=== PATIENT | female | born 1990 | race Caucasian/White ===

== ENCOUNTER → 2019-09-29 12:17 | Outpatient (BNVA) | payer MEDICAID, SELFPAY | PROVIDERS: Family Provider Family Medicine; PCP Family Medicine; Visit Provider Nurse Practitioner | DX: J02.9 Acute pharyngitis, unspecified (principal); J20.9 Acute bronchitis, unspecified; R05 Cough; R50.9 Fever, unspecified | CPT/HCPCS: 87804 ==

== ENCOUNTER → 2020-04-06 14:17 | Outpatient (BNVA) | payer MEDICAID, SELFPAY | PROVIDERS: Family Provider Family Medicine; PCP Family Medicine; Visit Provider Psychiatry & Neurology Psychiatry | DX: F32.9 Major depressive disorder, single episode, unspecified (principal); F41.1 Generalized anxiety disorder; F15.21 Other stimulant dependence, in remission | CPT/HCPCS: 99214 ==

== ENCOUNTER → 2020-04-27 11:09 | Outpatient (BNVA) | payer MEDICAID, SELFPAY | PROVIDERS: Family Provider Family Medicine; PCP Family Medicine; Visit Provider Obstetrics & Gynecology | DX: Z32.01 Encounter for pregnancy test, result positive (principal) | CPT/HCPCS: 81025 ==

== ENCOUNTER → 2020-04-28 14:04 | Outpatient (BNVA) | payer MEDICAID, SELFPAY | PROVIDERS: Family Provider Family Medicine; PCP Family Medicine; Visit Provider Nurse Practitioner | DX: J02.9 Acute pharyngitis, unspecified (principal) | CPT/HCPCS: 87071; 87880 ==

== ENCOUNTER → 2020-05-11 10:03 | Outpatient (BNVA) | payer MEDICAID, SELFPAY | PROVIDERS: Family Provider Family Medicine; PCP Family Medicine; Visit Provider Psychiatry & Neurology Psychiatry | DX: F41.1 Generalized anxiety disorder (principal); F32.9 Major depressive disorder, single episode, unspecified | CPT/HCPCS: 99213 ==

== ENCOUNTER → 2020-05-26 09:18 | Outpatient (BNVA) | payer MEDICAID, SELFPAY | PROVIDERS: Family Provider Family Medicine; PCP Family Medicine; Visit Provider Nurse Practitioner Women's Health | DX: Z34.90 Encounter for supervision of normal pregnancy, unspecified, unspecified trimester (principal) | CPT/HCPCS: 81000 ==

== ENCOUNTER → 2020-06-05 10:10 | Outpatient (BNVA) | payer MEDICAID, SELFPAY | PROVIDERS: Family Provider Family Medicine; PCP Family Medicine; Visit Provider Obstetrics & Gynecology | DX: O99.211 Obesity complicating pregnancy, first trimester (principal); Z3A.00 Weeks of gestation of pregnancy not specified | CPT/HCPCS: 80053; 80307; 81000; 82950; 85027; 86592; 86762; 86803; 86850; 86900; 87340; 87806 ==

== ENCOUNTER → 2020-06-15 13:43 | Outpatient (BNVA) | payer MEDICAID, SELFPAY | PROVIDERS: Family Provider Family Medicine; PCP Family Medicine; Visit Provider Obstetrics & Gynecology | DX: Z34.80 Encounter for supervision of other normal pregnancy, unspecified trimester (principal) | CPT/HCPCS: 81000; 87210; 87491; 87591; 88175 ==

== ENCOUNTER → 2020-06-26 15:25 | Outpatient (BNVA) | payer MEDICAID, SELFPAY | PROVIDERS: Family Provider Family Medicine; PCP Family Medicine; Visit Provider Obstetrics & Gynecology | DX: R39.15 Urgency of urination (principal); R35.1 Nocturia | CPT/HCPCS: 80053; 81000 ==

== ENCOUNTER → 2020-07-02 12:58 | Outpatient (BNVA) | payer MEDICAID, SELFPAY | PROVIDERS: Family Provider Family Medicine; PCP Family Medicine; Visit Provider Nurse Practitioner Women's Health | DX: Z34.90 Encounter for supervision of normal pregnancy, unspecified, unspecified trimester (principal) | CPT/HCPCS: 81000 ==

== ENCOUNTER → 2020-07-23 11:11 | Outpatient (BNVA) | payer MEDICAID, SELFPAY | PROVIDERS: Family Provider Family Medicine; PCP Family Medicine; Visit Provider Nurse Practitioner Women's Health | DX: Z34.90 Encounter for supervision of normal pregnancy, unspecified, unspecified trimester (principal) | CPT/HCPCS: 80307; 81000 ==

== ENCOUNTER → 2020-08-12 08:48 | Outpatient (BNVA) | payer MEDICAID, SELFPAY | PROVIDERS: Family Provider Family Medicine; PCP Family Medicine; Visit Provider Obstetrics & Gynecology | DX: O32.1XX0 Maternal care for breech presentation, not applicable or unspecified (principal); Z3A.20 20 weeks gestation of pregnancy | CPT/HCPCS: 76805 ==

== ENCOUNTER → 2020-08-14 10:09 | Outpatient (BNVA) | payer MEDICAID, SELFPAY | PROVIDERS: Family Provider Family Medicine; PCP Family Medicine; Visit Provider Obstetrics & Gynecology | DX: Z34.90 Encounter for supervision of normal pregnancy, unspecified, unspecified trimester (principal) | CPT/HCPCS: 81000 ==

== ENCOUNTER → 2020-09-10 13:15 | Outpatient (BNVA) | payer MEDICAID, SELFPAY | PROVIDERS: Family Provider Family Medicine; PCP Family Medicine; Visit Provider Obstetrics & Gynecology | DX: Z34.90 Encounter for supervision of normal pregnancy, unspecified, unspecified trimester (principal) | CPT/HCPCS: 81000 ==

== ENCOUNTER → 2020-10-05 10:40 | Outpatient (BNVA) | payer BC, MEDICAID, SELFPAY | PROVIDERS: Family Provider Family Medicine; PCP Family Medicine; Visit Provider Obstetrics & Gynecology | DX: Z34.80 Encounter for supervision of other normal pregnancy, unspecified trimester (principal) | CPT/HCPCS: 81000; 82950; 85027 ==

== ENCOUNTER → 2020-10-12 08:36 | Outpatient (BNVA) | payer BC, MEDICAID, SELFPAY | PROVIDERS: Family Provider Family Medicine; PCP Family Medicine; Visit Provider Obstetrics & Gynecology | DX: R73.09 Other abnormal glucose (principal) | CPT/HCPCS: 82951; 82952 ==

== ENCOUNTER → 2020-10-19 11:42 | Outpatient (BNVA) | payer BC, MEDICAID, SELFPAY | PROVIDERS: Family Provider Family Medicine; PCP Family Medicine; Visit Provider Obstetrics & Gynecology | DX: Z34.90 Encounter for supervision of normal pregnancy, unspecified, unspecified trimester (principal) | CPT/HCPCS: 80307; 81000 ==

== ENCOUNTER → 2020-11-02 10:33 | Outpatient (BNVA) | payer BC, MEDICAID, SELFPAY | PROVIDERS: Family Provider Family Medicine; PCP Family Medicine; Visit Provider Obstetrics & Gynecology | DX: Z34.90 Encounter for supervision of normal pregnancy, unspecified, unspecified trimester (principal) | CPT/HCPCS: 81000 ==

== ENCOUNTER → 2020-11-17 15:02 | Outpatient (BNVA) | payer BC, MEDICAID, SELFPAY | PROVIDERS: Family Provider Family Medicine; PCP Family Medicine; Visit Provider Nurse Practitioner Women's Health | DX: Z34.80 Encounter for supervision of other normal pregnancy, unspecified trimester | CPT/HCPCS: 80307; 81000 ==

== ENCOUNTER → 2020-11-30 10:09 | Outpatient (BNVA) | payer BC, MEDICAID, SELFPAY | PROVIDERS: Family Provider Family Medicine; PCP Family Medicine; Visit Provider Obstetrics & Gynecology | DX: Z34.80 Encounter for supervision of other normal pregnancy, unspecified trimester (principal) | CPT/HCPCS: 81000; 87081 ==

== ENCOUNTER → 2020-12-07 11:05 | Outpatient (BNVA) | payer BC, MEDICAID, SELFPAY | PROVIDERS: Family Provider Family Medicine; PCP Family Medicine; Visit Provider Obstetrics & Gynecology | DX: Z34.80 Encounter for supervision of other normal pregnancy, unspecified trimester (principal) | CPT/HCPCS: 81000 ==

== ENCOUNTER → 2020-12-14 11:00 | Outpatient (BNVA) | payer BC, MEDICAID, SELFPAY | PROVIDERS: Family Provider Family Medicine; PCP Family Medicine; Visit Provider Obstetrics & Gynecology | DX: Z34.90 Encounter for supervision of normal pregnancy, unspecified, unspecified trimester (principal) | CPT/HCPCS: 81000 ==

== ENCOUNTER → 2020-12-21 09:41 | Outpatient (BNVA) | payer BC, MEDICAID, SELFPAY | PROVIDERS: Family Provider Family Medicine; PCP Family Medicine; Visit Provider Obstetrics & Gynecology | DX: Z34.80 Encounter for supervision of other normal pregnancy, unspecified trimester (principal) | CPT/HCPCS: 81000; 87635 ==

== ENCOUNTER → 2020-12-28 09:32 | Outpatient (BNVA) | payer BC, MEDICAID, SELFPAY | PROVIDERS: Family Provider Family Medicine; PCP Family Medicine; Visit Provider Obstetrics & Gynecology | DX: Z34.90 Encounter for supervision of normal pregnancy, unspecified, unspecified trimester (principal) | CPT/HCPCS: 81000 ==

== ENCOUNTER 2020-12-30 07:16 | Inpatient (IN) | payer BC, MEDICAID, SELFPAY ==
[2020-12-30] VITALS (69 sets, daily range): BP systolic 107–168; BP diastolic 55–91; PULSE 68–129; RESP 16–18; TEMP 36.3–36.9; O2SAT 98–99; BMI 43.9
[2020-12-30 08:16] LABS: Amphetamines Screen Urine Negative (Negative); Barbiturates Screen Urine Negative (Negative); Benzodiazepines Screen Urine Negative (Negative); Cocaine Screen Urine Negative (Negative); Opiate Screen Urine Negative (Negative); PCP Screen Urine Negative (Negative); THC Screen Urine Positive (Negative)
[2020-12-30] MEDS: lactated ringers 1,000 ML 999 ML IV ×3 (08:18→12:54)
--- NOTE | 2020-12-30 08:29 | PC.NURSE ---
Does not have custody of oldest child. Patient admits to THC use. Children's services involved with every baby.
[2020-12-30] MEDS: oxytocin 30 UNIT/500 ML BAG IV (08:30)
[2020-12-30 09:19] LABS: Basophils % 0.3 %; Eosinophils # 0.2 10^3/uL (0.0-0.8); Eosinophils % 1.5 %; Hematocrit 32.5 % (37.0-47.0); Hemoglobin 10.6 g/dL (11.5-15.3); Lymphocytes # 2.6 10^3/uL (0.8-4.8); Mean Corpuscular HGB Conc 32.6 g/dL (30.0-36.0); Mean Corpuscular Volume 88.8 fL (81-99); Mean Platelet Volume 11.8 fL (7.4-10.4); Monocytes # 0.7 10^3/uL (0.2-0.9); Monocytes % 6.6 %; Neutrophils # 6.41 10^3/uL (1.8-7.7); Neutrophils % 65.1 %; Nucleated Red Blood Cells % 0 %; Platelet Count 268 10^3/cmm (130-400); Red Blood Count 3.66 10^6/uL (4.1-5.3); Red Cell Distribution Width 13.1 % (12.1-15.1); White Blood Count 9.9 10^3/uL (4.0-10.0)
[2020-12-30 09:58] LABS: Urine Creatinine 46 mg/dL (28-217); Urine Protein Random 5 mg/dL
[2020-12-30 10:09] LABS: UPRO/UCREAT Ratio 0.11 mg/mg CR
[2020-12-30] MEDS: alum-mag-hydroxide-sime 30 mL UDC PO (11:08)
[2020-12-30] MEDS: fentaNYL 50 mcg/mL INJ 2mL IVP (12:14)
[2020-12-30] MEDS: ondansetron 2 mg/ML SDV 2 mL 4 MG IVP (13:35)
--- NOTE | 2020-12-30 13:49 | ANES.PREANE2 ---
Pre-Anesthetic Assessment Pre-Anesthetic Assessment: Height/Weight: Height 1.68 m Weight 123.377 kg Temp Pulse Resp BP Pulse Ox 97.3 F L 104 H 18 123/70 99 12/30/20 10:45 12/30/20 13:41 12/30/20 13:00 12/30/20 13:41 12/30/20 13:01 Was Beta Chata taken within 24 hours: N/A Was Clonidine taken within 24 hours: N/A Social: Social History: Tobacco and No alcohol Exam: Pre-Anes Outpt Exam: alert, oriented x 3, clear to auscultation bilaterally and regular rate & rhythm Airway: Submandibular: WNL Cervical ROM: WNL MP: 2 Dentition: Full Metabolic: Metabolic: Morbid obesity Anesthetic Plan: ASA status: 2 Anesthesia: Regional (specify below) (Labor epidural) Risk of > 500 ml blood loss (7ml/kg in children): No Meds/Allergies Current Medications: Current Medications Generic Name Dose Route Start Last Admin Trade Name Freq PRN Reason Stop Dose Admin Al Hydrox/Mg [place] x/Simethicone 30 ml 12/30/20 07:15 12/30/20 11:08 Tjnn-Ump-Taidopp de-Hugh 30 Ml Udc PO 30 ml Q4H PRN Administration INDIGESTION Fentanyl 25 - 100 mcg 12/30/20 07:15 12/30/20 12:14 Fentanyl 50 Mcg/ Ml Inj 2ml IVP 25 mcg Q1H PRN Administration SEVERE PAIN Lactated Ringer's 1,000 mls @ 999 m ls/hr 12/30/20 07:15 12/30/20 11:51 Lactated Ringers IV Infused .Q1H1M PRN Infusion Per L&D Rescitati on Protocol Oxytocin 30 unit in 500 ml s @ 1 mls/hr 12/30/20 07:30 12/30/20 11:00 Pitocin IV 15 milliunit/min .Q24H FRANKIE 15 mls/hr Titration Protocol 1 MILLIUNIT/MIN Ropivacaine 200 mg in 100 mls @ 13 mls/hr 12/30/20 11:45 12/30/20 12:54 Naropin Premix EPIDURAL 13 mls/hr .Q7H42M FRANKIE Administration Lactated Ringer's 1,000 mls @ 999 m ls/hr 12/30/20 11:42 12/30/20 12:54 Lactated Ringers IV 999 mls/hr .Q1H1M PRN Administration See label comment s Ondansetron HCl 4 mg 12/30/20 07:15 12/30/20 13:35 Ondansetron 2 Mg /Ml Sdv 2 Ml IVP 4 mg Q4H PRN Administration NAUSEA AND VOMITI NG PFSH Anesthesia PFSH: Medical History Anxiety with depression Atypical squamous cells of undetermined significance (ASC-US) on cervical Pap smear HPV was negative No pertinent past medical history neghx: htn,dm,thyroid,dvt/pe Surgical History No pertinent past surgical history Family History Mother Family history of thyroid problem Hypertension Social History (Updated 12/29/20 @ 15:42 by Christo Maloney MD) Smoking and tobacco status: former smoker Quit status (tobacco): has quit using tobacco Year quit tobacco: 05/2020 Former quit date comment: Smoked 1/2 pack/week. Started age 15 Alcohol intake: never Other details last substance use: Using marijuana. Female Reproductive History: : 4 Data Anesthesia CBC & Chem 7: 12/30/20 07:30 Other Labs: Laboratory Results - last 48 hr 12/30/20 12/30/20 12/30/20 07:30 07:30 07:30 WBC 9.9 RBC 3.66 L Hgb 10.6 L Hct 32.5 L MCV 88.8 MCH 29.0 MCHC 32.6 RDW 13.1 Plt Count 268 MPV 11.8 H Neut % (Auto) 65.1 Lymph % (Auto) 26.0 Powell % (Auto) 6.6 Eos % (Auto) 1.5 Baso % (Auto) 0.3 Neut # (Auto) 6.41 Lymph # (Auto) 2.6 Powell # (Auto) 0.7 Eos # (Auto) 0.2 Baso # (Auto) 0.0 Nucleated RBC % (auto) 0 Nucleated RBCs # 0.0 U Random Total Protein 5 Urine Creatinine 46 Protein/Creatinin Ratio 0.11 Urine Opiates Screen Negative Ur Barbiturates Screen Negative Ur Phencyclidine Scrn Negative Ur Amphetamines Screen Negative U Benzodiazepines Scrn Negative Urine Cocaine Screen Negative U Marijuana (THC) Screen Positive H Cardiac Studies: No Data to Display
--- NOTE | 2020-12-30 13:50 | ANES.PROC ---
Anesthesia Procedures Procedure/Date: 12/30/20 Epidural: Time Out Performed: Yes Consents Signed: Procedure Consent Consent: requested by attending/covering physician, from patient, risks and benefits reviewed and patient agrees to proceed Lumbar Level: L3-L4 Epidural position: sitting Epidural procedure: sterile prep of area, 1% lidocaine to numb the area, 18 g needle, negative for paresthesia passed, neg for paresthesia, test dose given, 1.5% xylocaine 1:200k epi, placed PCEA, no systemic response, sterile dressing applied and 0.2% Ropiavacaine @ mls/hr (13) Additional Comments: SANTAAN at 7cm, cath at 12cm. Bolused 5mls 2% lido.
[2020-12-30] MEDS: dextrose 5%-lactated ringers 1,000 ML 125 ML IV (14:42)
[2020-12-30] MEDS: calcium carbonate 500 mg Chew Tablet 1000 MG PO (14:54)
--- NOTE | 2020-12-30 16:01 | PM.DELIVERY ---
Delivery Note: Date of delivery: December 30, 2020 Pre-delivery diagnoses: 1. Term at 40-4/7 weeks gestation 2. Marijuana use in in third trimester 3. Obesity in in third trimester Post-delivery diagnoses: 1. Term at 40-4/7 weeks gestation - delivered 2. Marijuana use in - delivered 3. Obesity in - delivered 4. Viable male . Procedure: Spontaneous vaginal delivery Op report anesthesia: Epidural Delivering Physician: Christo Maloney MD Estimated blood loss (mL): 350 Pre-Delivery Course: Patient is a 30-year-old female, 4, para 3-0-0-3 with an LMP of 03/21/2020 and an EDC of 12/26/2020 based on LMP and consistent with a 12-week ultrasound, who is 40-4/7 weeks gestation at the time of admission. She presented to labor and delivery at approximately 7:00 this morning, 12/30/2020, for induction of labor due to term . Her care has been mainly provided by Dr. Christo Maloney at [facility]. Her has been complicated by anxiety and depression during . She had been on medications but stopped these on her own. She also had smoked through majority of the . She was also using marijuana throughout the . Patient was admitted to labor and delivery and started on Pitocin for induction of labor. On presentation she was 4 cm dilated and 75% effaced. She became more uncomfortable through the morning and had epidural placed at around 12:30. At 14:05 artificial rupture membranes was performed with clear fluid present. She was originally an 8 to 9 cm dilation with bulging membranes. Cervix shrunk to 8 cm after rupturing membranes. She continued to progress on her own and was found to be completely dilated by 14:55. Delivery: Patient was initially very numb and was allowed to labor down. She started pushing at 15:33 and delivered at 15:46 as a spontaneous vaginal delivery of an occiput anterior male infant over an intact perineum under epidural anesthesia. Following delivery of the infant's head, no nuchal cords were noted. The rest the delivered atraumatically with the left shoulder anterior. Baby was placed on the mother's abdomen where it was left in the care of the waiting nurses. The baby was spontaneously crying. Cord was clamped and then cut by the reported father of the baby. Cord blood was obtained. Pitocin bolus was started. Placenta delivered intact by simple expression at 15:52. The cervix and vagina were palpated and noted to be intact. Labia were inspected and noted be intact except for superficial abrasions which required no repair. FINDINGS 1. Viable male infant weighing 9 lbs 13 oz (4450 g) with a length of 23 inches and Apgars of 7 at 1 minute and 9 at 5 minutes. 2. Three-vessel cord with no loops of nuchal cord noted. 3. Normal-appearing placenta with an eccentric cord insertion. Post-Delivery Status: Mother and were left to recover in satisfactory condition. Coding Level of Care Code Acute Long Term Care Pharmacist for Emilee Sena
[2020-12-30] MEDS: lanolin oint 7 gm 1 APPLIC TOPICAL (18:25)
[2020-12-30] MEDS: docusate sodium 100 mg Capsule PO (18:26)
[2020-12-30] MEDS: ibuprofen 800 mg tablet PO (20:40)
[2020-12-31] VITALS (8 sets, daily range): BP systolic 104–174; BP diastolic 67–96; PULSE 70–95; RESP 16–18; TEMP 36.3–36.9; O2SAT 95
[2020-12-31] MEDS: TRAMadol 50 mg Tablet PO ×2 (03:20→16:09)
[2020-12-31 04:38] LABS: Hematocrit 31.1 % (37.0-47.0); Mean Corpuscular HGB Conc 32.2 g/dL (30.0-36.0); Mean Corpuscular Hemoglobin 28.9 pg (28.0-34.0); Mean Corpuscular Volume 89.9 fL (81-99); Platelet Count 254 10^3/cmm (130-400); Red Blood Count 3.46 10^6/uL (4.1-5.3); Red Cell Distribution Width 13.1 % (12.1-15.1); White Blood Count 14.7 10^3/uL (4.0-10.0)
[2020-12-31] MEDS: docusate sodium 100 mg Capsule PO (09:54)
[2020-12-31] MEDS: prenatal vitamin Capsule 1 CAP PO (09:54)
[2020-12-31] MEDS: ibuprofen 800 mg tablet PO ×2 (09:54→16:09)
--- NOTE | 2020-12-31 15:30 | PM.OBGYDC ---
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 She had presented to labor and delivery for induction of labor due to term . She had been started on Pitocin following admission. She became more uncomfortable with this and had epidural placed. Artificial rupture membranes was performed at 14: 05 and she was 7 to 8 cm dilated at the time. Fluid was clear. She progressed to complete dilation by 14: 55. She was initially allowed to labor down and started pushing at 15: 33 and delivered at 15: 46 as a spontaneous vaginal delivery of an occiput anterior male infant over an intact perineum under epidural anesthesia. The baby weighed 9 pounds 13 ounces (4450 g) with a length of 23 inches and Apgars of 7 at 1 minute and 9 at 5 minutes. Mother and baby both did well following delivery. Day 1. Patient reported doing well. She states her pain is been well controlled. She reports tolerating a regular diet without nausea or vomiting. She denied lightheadedness or dizziness with ambulation. She denied shortness of breath or chest pains. She denied problems with urination. She states that her bleeding has slowed. She is breast-feeding. She would like to go home today. Physical exam: See below. Plan Discharge to home this evening. Discharge instructions discussed with patient. Patient is to follow-up in the office in approximately 6 weeks. Information Peripartum Data: Infant Delivery Method: Vaginal Laceration description: Superficial Episiotomy description: None complications: none [place]: 1: Gender: Male Disposition of : home Additional [place] Information: Weight 9 lbs 13 oz (4450 g) with a length of 23 inches and Apgars of 7 at 1 minute and 9 at 5 minutes. Physical Exam Const: COMMON NORMALS: no acute distress, average body habitus, alert and well nourished GENERAL APPEARANCE: well developed ORIENTATION/CONSCIOUSNESS: Yes oriented to person, Yes oriented to place and Yes oriented to time Resp: COMMON NORMALS: normal respiratory effort and clear to auscultation bilaterally AUSCULTATION: clear to auscultation bilaterally Cardio: COMMON NORMALS: regular rate, regular rhythm, No gallops present (Cardio), No murmurs present (Cardio) and No rub (Cardio) RATE: regular rate RHYTHM: regular rhythm GI: COMMON NORMALS: Soft to palpation, non-tender, No hepatosplenomegaly present and no masses (Except nontender uterus) AUSCULTATION: Yes normoactive bowel sounds PALPATION: Yes Soft to palpation and Yes No hepatosplenomegaly present Extremity: COMMON NORMALS: no calf tenderness NARRATIVE EXTREMITY EXAM: 1+ lower extremity edema bilaterally Neuro: SENSORIUM/ORIENTATION: Yes alert, Yes oriented to person, Yes oriented to place and Yes oriented to time Psych: COMMON NORMALS: normal affect MOOD & AFFECT: Yes euthymic mood Urinary Catheter Management^: Herrera: Cath Placed During This Visit: yes Urinary Catheter Date of Insertion: 12/30/20 Urinary Catheter Time of Insertion: 13:15 Discharge Data Data Completed and Pending: Labs from last 24 hours 12/31/20 04:25 WBC 14.7 H RBC 3.46 L Hgb 10.0 L Hct 31.1 L MCV 89.9 MCH 28.9 MCHC 32.2 RDW 13.1 Plt Count 254 MPV 11.0 H Vitals: Last Vital Signs Temp 97.8 F 12/31/20 09:56 Pulse 93 12/31/20 09:56 Resp 16 12/31/20 09:56 BP 156/86 12/31/20 09:56 Pulse Ox 95 12/31/20 02:11 Discharge Plan Discharge Patient Disposition: Home Condition: Stable Discharge Orders: Discharge Order (Routine); Ordered 12/31/20 Ordered By: Christo Maloney Referrals: Janet Jones MD [Physician] - 02/09/21 8:00 am (* Your 6 week appointment is with Dr. Jones on 02/09/2021 at 8:00am) Discharge Diet: Regular Discharge Activity: Resume usual activity Patient Instructions: Pre-eclampsia and Eclampsia (DC), Bleeding (DC), OB Discharge Report, OB Food/Drug Interaction Guide, Opioid Safety, OB Home Care, OB Proud Parent Packet, OB Vaginal Deliveries - [facility] Activity Restrictions/Additional Instructions: May use njym-bjx-qrylgdk ibuprofen 200 mg, 3 tablets 4 times a day or 4 tablets 3 times a day, as needed for pain. May use prtr-zqi-laiorfr Tylenol as needed for pain. Discharge Attestations PLASTER MACHINE OPERATOR Time Spent in Discharge Care*: less than 30 min Status at Discharge: Cognitive status at discharge: cognitively intact, Functional status at discharge: independent ambulation Overall status at discharge: patient is back to baseline Coding Level of Care Code Acute Accounting Assistant for Emilee Fwd Diagnoses Drug dependence of mother in , delivered O99.324; F19.20 Obesity during , delivered O99.214 Marijuana use F12.90
== END 2020-12-31 18:20 | disposition home or self-care (01) | DRG 806 ==
PROVIDERS: Admitting Provider Obstetrics & Gynecology; PCP Family Medicine; Visit Provider Obstetrics & Gynecology
DX: O48.0 Post-term pregnancy (principal); O99.324 Drug use complicating childbirth; Z37.0 Single live birth; F12.20 Cannabis dependence, uncomplicated; Z3A.40 40 weeks gestation of pregnancy; O99.334 Smoking (tobacco) complicating childbirth; F17.200 Nicotine dependence, unspecified, uncomplicated; O99.344 Other mental disorders complicating childbirth; F41.9 Anxiety disorder, unspecified; F32.9 Major depressive disorder, single episode, unspecified
CPT/HCPCS: 36415; 51702; 59025; 59409; 80306; 82570; 84156; 85025; 85027; 98960; J2405; J2795; J3010

== ENCOUNTER → 2021-02-19 12:47 | Outpatient (BNVA) | payer BC, MEDICAID, SELFPAY | PROVIDERS: PCP Family Medicine; Visit Provider Obstetrics & Gynecology | DX: Z30.9 Encounter for contraceptive management, unspecified (principal); Z39.2 Encounter for routine postpartum follow-up | CPT/HCPCS: 81025 ==

== ENCOUNTER → 2021-05-03 11:10 | Outpatient (BNVA) | payer BC, MEDICAID, SELFPAY | PROVIDERS: PCP Family Medicine; Visit Provider Nurse Practitioner Family | DX: Z20.822 Contact with and (suspected) exposure to COVID-19 (principal); J06.9 Acute upper respiratory infection, unspecified | CPT/HCPCS: 87426 ==

== ENCOUNTER → 2021-11-07 12:42 | Outpatient (BNVA) | payer BC, MEDICAID, SELFPAY | PROVIDERS: PCP Family Medicine; Visit Provider Nurse Practitioner | DX: J02.9 Acute pharyngitis, unspecified (principal) | CPT/HCPCS: 87880 ==

== ENCOUNTER 2023-04-21 11:09 | Outpatient (CLI) | payer BC, MEDICAID, SELFPAY ==
--- NOTE | 2023-04-21 11:18 | US_ITS ---
WS: [id number] EARLY OBSTETRICAL ULTRASOUND (<14 WEEKS). HISTORY: POSITIVE TEST COMPARISON: None available. Single intrauterine gestational sac is identified. Cardiac activity at 116 BPM. [place]-rump length theresa sures 0.5 cm which corresponds to a gestation of 6w2d. Normal-appearing yolk sac and amnion demonstra luh. No subchorionic hemorrhage. No free fluid. Corpus luteum left ovary measures 2.1 x 1.7 x 2.3 cm. IMPRESSION: 1. Single intrauterine gestation 6 weeks 2 days with an EDC of 12/13/2023. 2. Left ovarian corpus luteal cyst.
== END 2023-04-21 11:10 | disposition home or self-care (01) ==
LOC: RAD 11:11
PROVIDERS: PCP Family Medicine; Visit Provider Family Medicine
DX: Z32.01 Encounter for pregnancy test, result positive (principal); O34.81 Maternal care for other abnormalities of pelvic organs, first trimester; N83.12 Corpus luteum cyst of left ovary; Z3A.01 Less than 8 weeks gestation of pregnancy
CPT/HCPCS: 76801

== ENCOUNTER 2023-07-21 09:20 | Outpatient (CLI) | payer BC, MEDICAID, SELFPAY ==
--- NOTE | 2023-07-21 09:38 | US_ITS ---
WS: [id number] OBSTETRICAL ULTRASOUND COMPLETE HISTORY: SECOND TRIMESTER /ANATOMY CHECK COMPARISON: 04/21/2023 Single intrauterine gestation in breech presentation. Cervix is Closed and normal length. Cervical length is 5.7 cm. Normal amount of amniotic fluid surrounds the fetus. Placenta: Posterior and terminates 1.0 cm from the internal cervical os. Placenta grade 1 Heart: 150 BPM. Extremely limited evaluation of the heart. Cannot evaluate chambers nor outflow tracts. Anatomy: Intracranial structures and spine are unremarkable as visualized. Poor visualization o f the kidneys and stomach. Urinary bladder is normally distended. Limited visualization of the abdominal wall and the cord insertion site. 4 extremities are present. profile: Poorly visualized. Gender: Suspect female. Limited. measurements: BPD = 4.4 cm = 19w3d; HC = 17.3 cm = 19w6d; AC = 13.6 cm = 19w1d; FL = 3.2 cm = 20w0d; EFW: 297 g. Biometry is internally concordant. AGA by ultrasound: 19w6d MARIZA by ultrasound: 12/09/2023 IMPRESSION: 1. Single intrauterine gestation of 19w6d with an MARIZA of 12/09/2023. 2. Screening survey of anatomy is significantly compromised by maternal body habitus. In parti cular the heart evaluation is limited. Poorly visualized abdominal wall. Growth appears appropriate s smooth the first trimester ultrasound. 3. Low-lying posterior placenta.
== END 2023-07-21 09:21 | disposition home or self-care (01) ==
LOC: RAD 09:20
PROVIDERS: PCP Family Medicine; Visit Provider Family Medicine
DX: Z36.89 Encounter for other specified antenatal screening (principal)
CPT/HCPCS: 76805

== ENCOUNTER 2023-09-01 12:40 | Outpatient (CLI) | payer BC, MEDICAID, SELFPAY ==
--- NOTE | 2023-09-01 12:45 | US_ITS ---
WS: [email or web address] LIMITED OBSTETRICAL ULTRASOUND HISTORY: Encounter for other screening COMPARISON: 07/21/2023 and 04/21/2023 Presentation: Breech Cervix: Closed and normal length. Placenta: Posterior, no previa or abruption. Grade: 1 HEART: FHR of 133 BPM. measurements: BPD = 6.2 cm = 25w1d; 39% HC = 23.6 cm = 25w5d; 47% AC = 21.7 cm = 26w1d; 73% FL = 4.8 cm = 26w1d; 68% Amniotic fluid: Single deepest vertical pocket 4.8 cm. There are several adequate amniotic fluid pock ets. EFW: 886 g; 68% AGA by ultrasound: 25w6d MARIZA by ultrasound: 12/09/2023 Cord insertion and abdominal wall are better visualized today. Kidneys are normal. Better visualizati on of the profile and heart. Normal stomach. Better visualization of the nose and lips. Four-ch michelle heart. The LVOT is normal. RVOT is within grossly within normal limits. Better seen than on e prior study. IMPRESSION: 1. Single intrauterine gestation of 25 weeks 6 days with an EDC of 12/09/2023. Appropriate growth sin ce the first trimester ultrasound. No growth asymmetry. 2. Estimated weight at the 68th percentile. 3. Better visualization of the heart. 4 chambers and outflow tracts are within normal limits. 4. Posterior placenta. Placenta well above the internal cervical os. 5. Normal abdominal wall. 6. Breech.
== END 2023-09-01 12:41 | disposition home or self-care (01) ==
LOC: RAD 12:40
PROVIDERS: PCP Family Medicine; Visit Provider Family Medicine
DX: Z36.89 Encounter for other specified antenatal screening (principal)
CPT/HCPCS: 76816

== ENCOUNTER 2023-09-06 11:20 | Outpatient (CLI) | payer BC, MEDICAID, SELFPAY ==
[2023-09-06 11:20] VITALS: BMI 38.9
[2023-09-06 11:40] VITALS: BP 132/72; PULSE 107
[2023-09-06 12:00] VITALS: BP 121/72; PULSE 101
[2023-09-06 12:28] VITALS: BP 121/72; PULSE 101; RESP 16
== END 2023-09-06 12:20 | disposition home or self-care (01) ==
LOC: OPOB 11:27 → OBGYN 11:27
PROVIDERS: PCP Family Medicine; Visit Provider Family Medicine
DX: O26.899 Other specified pregnancy related conditions, unspecified trimester (principal); Z3A.00 Weeks of gestation of pregnancy not specified; R10.9 Unspecified abdominal pain
CPT/HCPCS: 59025; 99211

== ENCOUNTER 2023-11-20 12:04 | Outpatient (CLI) | payer BC, MEDICAID, SELFPAY ==
--- NOTE | 2023-11-20 12:08 | US_ITS ---
WS: [email or web address] LIMITED OBSTETRICAL ULTRASOUND HISTORY: UTERINE SIZE-DATE DISCREPANCY, THIRD TRIMESTER COMPARISON: 09/01/2023 and 04/21/2023 Presentation: Vertex. Cervix: Closed and normal length. Placenta: Posterior and fundal. Grade: 3 HEART: FHR of 142 BPM. measurements: BPD = 9.0 cm = 36w3d; 56% HC = 31.8 cm = 35w6d; 10% AC = 32.5 cm = 36w3d; 59% FL = 7.2 cm = 37w0d; 58% LUCILA: 11.8 cm EFW: 2957.1 g; 52% AGA by ultrasound: 36 weeks 3 days MARIZA by ultrasound: 12/15/2023 IMPRESSION: 1. Single intrauterine gestation of 36 weeks 3 days with an EDC of 12/15/2023. Appropriate growth sinc e the first trimester ultrasound. 2. Estimated weight at the 52nd percentile. 3. Abdominal circumference at the 59th percentile. 4. Grade 3 placenta. 5. Normal amniotic fluid.
== END 2023-11-20 12:05 | disposition home or self-care (01) ==
LOC: RAD 12:05
PROVIDERS: PCP Family Medicine; Visit Provider Family Medicine
DX: O26.843 Uterine size-date discrepancy, third trimester (principal); Z3A.36 36 weeks gestation of pregnancy
CPT/HCPCS: 76816

== ENCOUNTER 2023-12-07 15:45 | Inpatient (IN) | payer BC, MEDICAID, SELFPAY ==
[2023-12-07] VITALS (44 sets, daily range): BP systolic 95–140; BP diastolic 51–83; PULSE 81–131; TEMP 36.1; O2SAT 98–99; BMI 40.7
[2023-12-07 15:53] LABS: Basophils % 0.2 %; Eosinophils # 0.1 10^3/uL (0.0-0.8); Eosinophils % 0.6 %; Hematocrit 34.1 % (36-47); Lymphocytes # 2.5 10^3/uL (0.8-4.8); Lymphocytes % 12.8 %; Mean Corpuscular Hemoglobin 31.5 pg (27-33); Mean Corpuscular Volume 92.7 fl (85-98); Mean Platelet Volume 11.1 fL (7.4-10.4); Monocytes # 1.5 10^3/uL (0.2-0.9); Monocytes % 7.5 %; Neutrophils # 15.44 10^3/uL (1.8-7.7); Neutrophils % 78.4 %; Nucleated Red Blood Cells % 0 %; Platelet Count 279 10^3/cmm (157-399); Red Blood Count 3.68 10^6/uL (3.85-5.65); Red Cell Distribution Width 12.3 % (12.1-15.1); White Blood Count 19.69 10^3/uL (3.29-11.43)
[2023-12-07] MEDS: lactated ringers 1,000 ML 999 ML IV (16:00)
--- NOTE | 2023-12-07 16:00 | P.HP_ITS ---
Providers/Chief Complaint 2 Admitting Physician: Yousif Alcantar MD Primary Care Provider: Roslyn Madison DO Chief Complaint: possible ROM History of Present Illness Stephanie Mcnair is a 33 year old @ 390 wks by LMP c/with 6 wk US. is complicated by heavy marijuana use throughout . The patient presented to labor and delivery triage on the afternoon of 12/07/23 due to leakage of fluid. She began having contractions on the morning of 12/07/23. She tried smoking marijuana because that usually helped to slow down her contractions but this time it didn't work. By noon she noticed some mild discharge. This increased and she presented to triage for further evaluation. Her nitrazine was positive and she was grossly ruptured. She denies chest pains, shortness of breath, nausea, vomiting, fever, dysuria and vaginal bleeding. Medications/Allergies Home Medications Medication Instructions Recorded Confirmed Last Taken Type buspirone 10 mg tablet 10 mg PO DAILY 03/18/23 03/18/23 Unknown History ibuprofen 800 mg tablet 800 mg PO Q8H PRN pain #21 tabs 03/18/23 03/18/23 Unknown Rx sertraline 50 mg tablet 75 mg PO DAILY 03/18/23 03/18/23 Unknown History Allergies Allergy/AdvReac Type Severity Reaction Status Date / Time No Known Allergies Allergy Verified 03/18/23 16:38 PFSH Acute 2 PFSH: Medical History (Updated 12/07/23 @ 16:13 by Yousif Alcantar MD) No pertinent past medical history neghx: htn,dm,thyroid,dvt/pe Atypical squamous cells of undetermined significance (ASC-US) on cervical Pap smear HPV was negative Anxiety with depression Surgical History No pertinent past surgical history Family History Mother Family history of thyroid problem Hypertension Social History (Updated 12/07/23 @ 16:12 by Yousif Alcantar MD) Smoking and tobacco/nicotine status: former use of tobacco/nicotine Quit status (tobacco/nicotine): has quit using Year quit tobacco: 05/2020 Former quit date comment: Smoked 1/2 pack/week. 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 Female Reproductive History: : 5 Vitals/I&O/Wt Last Vital Signs Pulse 105 H 12/07/23 15:54 BP 131/79 12/07/23 15:54 O2 Del Method Room Air 12/07/23 15:55 Weight last 48 hrs Weight 245 lb Physical Exam 2 Narrative: General: Alert and oriented x3 Eyes: Pupils equal round and reactive to light and accommodation Neck: Enlarged thyroid noted on exam. Mouth: Mucous membranes moist, pharynx non-erythematous Cardiac: Regular rate and rhythm without murmurs Lungs: Clear to auscultation bilaterally without wheezes, crackles or rhonchi Abdomen: Soft, non-tender, fundus consistent with gestational age Extremities: Trace edema in the bilateral lower extremities Data 12/07/23 15:15 A&P Assessment and plan (1) Supervision of normal intrauterine in multigravida: We will proceed with routine care. If she is not making any change in one hour we will start IV pitocin. The patient wishes to have an epidural. She will get set up for this. She is GBS negative. After reviewing her chart from [facility], her other labs looked good with the exception of marijuana in her UDS. (2) Thyroid nodule: This is a new finding. Will need to get this followed as an outpatient. Will check thyroid levels today. (3) Marijuana use: The patient has used marijuana heavily during . This has been tied to increased risk of developmental delays for infants. Will encourage her not to use in future pregnancies. Attestations 2 Medical Necessity Statement*: The patient will be here for greater than two midnights due to routine intrapartum and management of labor and delivery. Coding Level of Care Code Acute Code for Chg Fwd Diagnoses Supervision of normal intrauterine in multigravida Z34.80 Thyroid nodule E04.1 Marijuana use F12.90
[2023-12-07] MEDS: alum-mag-hydroxide-sime 30 mL UDC PO (16:31)
--- NOTE | 2023-12-07 17:25 | P.ANESASSM_ITS ---
Pre-Anesthetic Assessment Height/Weight: Height 1.65 m Weight 111.13 kg Temp Pulse BP Pulse Ox O2 Del Method 97.0 F L 80 113/62 99 Room Air 12/08/23 05:36 12/08/23 07:51 12/08/23 07:51 12/07/23 17:36 12/07/23 15:55 Epidural Familial anesthetic complications: None Social No alcohol and No tobacco MJ use Exam alert, oriented x 3, clear to auscultation bilaterally and regular rate & rhythm Airway Dentition: full Anesthetic Plan ASA status: 3 Anesthesia: Regional (specify below) Risk of > 500 ml blood loss (7ml/kg in children): Yes, adequate IV access and fluids planned Medications/Allergies Home Medications Medication Instructions Recorded Confirmed Last Taken Type buspirone 10 mg tablet 10 mg PO DAILY 03/18/23 03/18/23 Unknown History ibuprofen 800 mg tablet 800 mg PO Q8H PRN pain #21 tabs 03/18/23 03/18/23 Unknown Rx sertraline 50 mg tablet 75 mg PO DAILY 03/18/23 03/18/23 Unknown History Allergies Allergy/AdvReac Type Severity Reaction Status Date / Time No Known Allergies Allergy Verified 03/18/23 16:38 Current Medications Generic Name Dose Route Start Last Admin Trade Name Freq PRN Reason Stop Dose Admin Oxytocin 30 unit in 500 mls @ 1 mls/hr 12/07/23 19:30 12/08/23 05:44 Pitocin IV 60 milliunit/min .Q24H FRANKIE 60 mls/hr Titration Protocol 1 MILLIUNIT/MIN PFSH Anesthesia Medical History (Updated 12/08/23 @ 05:58 by Yousif Alcantar MD) No pertinent past medical history neghx: htn,dm,thyroid,dvt/pe Atypical squamous cells of undetermined significance (ASC-US) on cervical Pap smear HPV was negative Anxiety with depression Surgical History No pertinent past surgical history Family History Mother Family history of thyroid problem Hypertension Social History (Updated 12/07/23 @ 16:12 by Yousif Alcantar MD) Smoking and tobacco/nicotine status: former use of tobacco/nicotine Quit status (tobacco/nicotine): has quit using Year quit tobacco: 05/2020 Former quit date comment: Smoked 1/2 pack/week. 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 Female Reproductive History : 5 Data Anesthesia 12/07/23 15:15 Short CBC 12/07/23 Range/Units 15:15 WBC 19.69 H (3.29-11.43) 10^3/uL Hgb 11.60 (11.27-16.99) g/dL Hct 34.1 L (36-47) % MCV 92.7 (85-98) fl Plt Count 279 (157-399) 10^3/cmm Neut % (Auto) 78.4 % Neut # (Auto) 15.44 H (1.8-7.7) 10^3/uL Blood Bank 12/07/23 15:15 Blood Type O Positive Rho(D) Type Rh positive Antibody Screen Negative Cardiac Studies: 2 No Data to Display Anesthesia Procedures Epidural Time Out Performed: Yes Consents Signed: Procedure Consent and NPO Consent Consent: requested by attending/covering physician, from patient, risks and benefits reviewed and patient agrees to proceed Lumbar Level: L2-L3 Epidural position: sitting Epidural procedure: sterile prep of area, 1% lidocaine to numb the area, 18 g needle, negative for paresthesia passed, neg for paresthesia, test dose given, 1.5% xylocaine 1:200k epi (5), 0.2% Ropivacaine bolus ml (5), placed PCEA, no systemic response, sterile dressing applied, L.U.D. no apparent complications and 0.2% Ropiavacaine @ mls/hr (10) Additional Comments: SANTANA at 6.5 cm, threaded to 12.5 cm
[2023-12-07] MEDS: ondansetron 2 mg/ML SDV 2 mL 4 MG IVP (18:17)
[2023-12-07] MEDS: oxytocin 30 UNIT/500 ML BAG IV (20:19)
[2023-12-07 20:21] LABS: Amphetamines Screen Urine Negative (Negative); Barbiturates Screen Urine Negative (Negative); Benzodiazepines Screen Urine Negative (Negative); Cocaine Screen Urine Negative (Negative); Opiate Screen Urine Negative (Negative); PCP Screen Urine Negative (Negative); THC Screen Urine Positive (Negative)
[2023-12-07] MEDS: ROPivacaine syringe 100 MG/50 ML SYRINGE 10 MG EPIDURAL (21:03)
[2023-12-08] VITALS (20 sets, daily range): BP systolic 108–141; BP diastolic 55–77; PULSE 60–99; RESP 17; TEMP 36.1–36.7; O2SAT 99
[2023-12-08] MEDS: ROPivacaine syringe 100 MG/50 ML SYRINGE 10 MG EPIDURAL ×2 (00:42→04:47)
[2023-12-08] MEDS: ondansetron 2 mg/ML SDV 2 mL 4 MG IVP (01:41)
[2023-12-08] MEDS: dextrose 5%-lactated ringers 1,000 ML 125 ML IV (01:51)
[2023-12-08 02:05] LABS: Thyroid Stimulating Hormone 2.69 uIU/mL (0.27-4.20)
--- NOTE | 2023-12-08 05:44 | P.PCNOB_ITS ---
Delivery Note: Date of delivery: December 08, 2023 Pre-delivery diagnoses: 1. Intrauterine at 39.1 weeks gestation 2. Heavy marijuana use throughout pregn neil 3. Spontaneous rupture membranes at malissa e 4. Thyroid nodule with borderline hypot hyroid levels Post-delivery diagnoses: 1. Intrauterine status post s pontaneous vaginal delivery at 39.1 weeks gestation 2. Heavy marijuana use throughout pregn neil 3. Spontaneous rupture of membranes at home 4. Thyroid nodule with borderline hypot hyroid levels 5. Delivery of female with s of 7 and 8 showing symptoms of TTN Procedure: Spontaneous vaginal delivery Delivering Physician: Yousif Alcantar MD Estimated blood loss (mL): 150 Findings: 1. Delivery of infant female with weigh t pending and Apgars of 7 and 8 2. Intact placenta with multiple white calcifications along the surface with a central umbilical cord insertion site. Pre-Delivery Course: Stephanie Mcnair is a 33 year old G5 NOW P5 status post spontaneous vaginal delivery @ 39.1 wks by LMP c/with 6 wk US. is complicated by heavy marijuana use throughout , new finding of thyroid nodule with borderline low thyroid levels. The patient presented to labor and delivery triage on the afternoon of 12/07/23 due to leakage of fluid that started around 12:30 PM. She began having contract ions on the morning of 12/07/23. She tried smoking marijuana because that usually helped to slow down her contractions but this time it didn't work. By about 12:30 PM she noticed some mild discharge. This increased and she presented to triage for further evaluation. Her nitrazine was positive and she was grossly ruptured. I am covering for Dr. Madison while she is out of town. This patient had seen Dr. Madison throughout . The patient was lisa on her own when she came in every 2 to 3 minutes. She was 4 cm dilated. She made gradual change to 6 cm dilation and received a laboring epidural. The head however stayed quite high and then -5 station and up above the pubic bone. The patient then stopped making cervical change and the contractions spaced out, so IV Pitocin was added to augment labor. The nursing staff did multiple position changes to try to encourage the infant to move down into the canal. The stayed at a significantly negative station for quite some time and then around 4:00 AM on 12/08/2023 the had descended into the canal and things started to progress more rapidly. The patient was then complete by 5:04 AM on 12/08/2023. heart tones throughout the labor process were with minimal variability frequently, however intermittently with reactive tracing. There were no significant decelerations noted. Delivery: The mother began pushing at 5:09 AM on 12/08/2023. The mother pushed well and the infant delivered in the OA position at 5:11 AM on 12/08/2023. A nuchal cord was noted and reduced prior to delivery of the rest of the infant. The right shoulder was the anterior shoulder and it delivered with ease. The rest of the infant delivered without complication. The 's mouth and nose were bulb suction by myself. A thick mucus was noted in her mouth. She began to cry within a few seconds after delivery. The was placed on the mother's ches t where the nurses were waiting to care for her. After approximately 1 minute the umbilical cord was clamped by myself and cut by the 's father. The infant then began to have more retractions and was taken to the warmer for further evaluation by nursing staff. Cord blood was obtained. The cord was then drained of blood and traction was placed on the umbilical cord. The uterus was massaged and the placenta delivered without complication at 5:14 AM on 12/08/2023. The placenta was noted to be intact with multiple white calcifications across the surface. The umbilical cord had very few twists in it but was healthy appearing otherwise. The cervix was inspected and no lacerations were noted. The vaginal wall was inspected and a small abrasion in the periurethral region was noted. No bleeding was noted and no sutures were needed. Currently the mother is doing well. The infant is receiving CPAP and supplemental oxygen for what is suspicious for TTN. History History History 5 Term 5 0 Miscarriages/Ectopic 0 Living Children 5 Past Pregnancies Del. Date GA/Weeks Outcome Route Wt Inf Gender Labor Lgth Comp. Anesth esia Location 12/08/23 39 live - full term Vaginal Female 22 hr [facility] Delivery Date: 12/08/23 Last Updated by: Yousif Alcantar MD Heavy THC use, Infant with likely TTN, Thyroid nodule with signs of borderline hypothyroidism A&P Assessment and plan (1) Spontaneous vaginal delivery: Coding Level of Care Code Acute Code for Chg Fwd Diagnoses Spontaneous vaginal delivery O80
[2023-12-08] MEDS: acetaminophen 325 mg Tablet 650 MG PO ×2 (06:28→16:03)
--- NOTE | 2023-12-08 08:34 | ANE.PACU2 ---
Inpatient post-anesthesia follow up: Airway intact: Yes Vital signs: Temperature 97.0 F Pulse Rate 92 Respiratory Rate Blood Pressure 119/69 Pulse Oximetry 99 Oxygen Delivery Me thod Room Air Oxygen Flow Rate Fraction of Inspir ed Oxygen Hydration adequate: Yes Nausea and vomiting: No Pain level: 1 Mental status: Baseline Epidural Start/End: Epidural Start Date: 12/07/23 Epidural Start Time: 17:09 Epidural End Date: 12/08/23 Epidural End Time: 06:01
--- NOTE | 2023-12-08 10:36 | PC.NURSE ---
MOVED PATIENT FROM OB 4 TO OB 11. PT AMBULATED WELL.
[2023-12-08] MEDS: sertraline 50 mg Tablet 75 MG PO (12:20)
[2023-12-08] MEDS: BuSPIRONE 10 mg Tablet PO (12:21)
[2023-12-08] MEDS: PRENATAL VIT NO.130/IRON/FOLIC 1 EACH TABLET PO (12:21)
[2023-12-08] MEDS: docusate sodium 100 mg Capsule PO ×2 (12:22→21:11)
[2023-12-08] MEDS: ibuprofen 800 mg tablet PO ×2 (12:22→21:11)
[2023-12-08 18:30] LABS: Hematocrit 31.9 % (36-47); Mean Corpuscular HGB Conc 33.5 g/dL (30-55); Mean Corpuscular Hemoglobin 31.5 pg (27-33); Mean Corpuscular Volume 93.8 fl (85-98); Mean Platelet Volume 11.1 fL (7.4-10.4); Platelet Count 249 10^3/cmm (157-399); Red Cell Distribution Width 12.6 % (12.1-15.1); White Blood Count 20.56 10^3/uL (3.29-11.43)
[2023-12-09 04:25] VITALS: BP 124/81; PULSE 65; RESP 17; O2SAT 99
[2023-12-09] MEDS: ibuprofen 800 mg tablet PO (09:11)
[2023-12-09] MEDS: PRENATAL VIT NO.130/IRON/FOLIC 1 EACH TABLET PO (09:11)
[2023-12-09] MEDS: docusate sodium 100 mg Capsule PO (09:12)
[2023-12-09] MEDS: sertraline 50 mg Tablet 75 MG PO (09:12)
[2023-12-09] MEDS: BuSPIRONE 10 mg Tablet PO (09:15)
[2023-12-09] MEDS: levothyroxine 50 mcg Tablet PO (09:24)
[2023-12-09 09:28] VITALS: BP 137/83; PULSE 76; RESP 15; TEMP 36.4; O2SAT 98
--- NOTE | 2023-12-09 10:09 | P.DS_ITS ---
Discharge Providers Date of Admission: 12/07/23 15:45 Date of Discharge: December 09, 2023 Attending Provider at Admission: Yousif Alcantar MD Attending Provider at Discharge: Yousif Alcantar MD Primary Care Provider: Roslyn Madison DO Diagnoses at Discharge Discharge Diagnosis (1) Spontaneous vaginal delivery: Status: Acute Other Information Additional DC diagnoses/information: 1. Intrauterine status post spontaneous vaginal delivery at 39.1 weeks gestation 2. Heavy marijuana use throughout 3. Spontaneous rupture of membranes at home 4. Thyroid nodule with borderline hypothyroid levels 5. Delivery of infant female weighing 8 pounds 1 ounce with Apgars of 7 and 8 showing symptoms of TTN Reason for Visit Reason for Visit: possible ROM Brief History: Stephanie Mcnair is a 33 year old G5 NOW P5 status post spontaneous vaginal delivery @ 39.1 wks by LMP c/with 6 wk US. is complicated by heavy marijuana use throughout , new finding of thyroid nodule with borderline low thyroid levels. The patient presented to labor and delivery triage on the afternoon of 12/07/23 due to leakage of fluid that started around 12:30 PM. She began having contractions on the morning of 12/07/23. She tried smoking marijuana because that usually helped to slow down her contractions but this time it didn't work. By about 12:30 PM she noticed some mild discharge. This increased and she presented to triage for further evaluation. Her nitrazine was positive and she was grossly ruptured. I am covering for Dr. Madison while she is out of town. This patient had seen Dr. Madison throughout . Hospital Course Hospital Course The patient made slow but steady change throughout the labor process and once the infant's had descended then things moved more quickly. The patient had a vaginal delivery and delivered at 5:04 AM on 12/08/2023. The patient did not ngo ve any significant bleeding. She had a mild abrasion that did not need suturing. Her did need to go to the nursery for TTN but is doing well at this point. the patient is doing well and is showing no signs of complications. She is ambulating, voiding, passing gas and tolerating food by mouth. She will be set up for an outpatient thyroid ultrasound due to a new finding of a thyroid nodule. She will be started on levothyroxine 50 mcg daily as her thyroid levels were noted to be borderline low. We will also restart her on buspirone and sertraline that she had been taking prior to . At this point she is not showing any signs of significant depression or anxiety. The patient will plan to follow-up with Dr. Madison as an outpatient and we will have Dr. Madison follow-up with the thyroid ultrasounds and recheck thyroid levels as well as 6 weeks . All questions were answered. The patient is in agreement with current plan of care. Physical Exam Narrative: General: Alert and oriented x3 Thyroid: Enlarged thyroid noted that is approximately 4 cm in diameter. Nontender. Cardiac: Regular rate and rhythm without murmurs Lungs: Clear to auscultation bilaterally without wheezes, crackles or rhonchi Abdomen: Soft, mild tenderness over uterus. The uterus is firm and 2 cm below the umbilicus. Extremities: Trace edema in the bilateral lower extremities Urinary Catheter Management: Herrera Latex: Cath Placed During This Visit: yes, but has since been removed by the nurse Reason for Continuing Indwelling Catheter: Decision to DC Catheter Urinary Catheter Date of Insertion: 12/07/23 Urinary Catheter Time of Insertion: 17:45 Date Urinary Catheter Removed: 12/08/23 Time Urinary Catheter Discontinued: 05:00 Discharge Data Studies Completed and Pending Laboratory Results WBC 20.56 10^3/uL (3.29-11.43) H 12/08/23 18:15 RBC 3.40 10^6/uL (3.85-5.65) L 12/08/23 18:15 Hgb 10.70 g/dL (11.27-16.99) L 12/08/23 18:15 Hct 31.9 % (36-47) L 12/08/23 18:15 MCV 93.8 fl (85-98) 12/08/23 18:15 MCH 31.5 pg (27-33) 12/08/23 18:15 MCHC 33.5 g/dL (30-55) 12/08/23 18:15 RDW 12.6 % (12.1-15.1) 12/08/23 18:15 Plt Count 249 10^3/cmm (157-399) 12/08/23 18:15 MPV 11.1 fL (7.4-10.4) H 12/08/23 18:15 Neut % (Auto) 78.4 % 12/07/23 15:15 Lymph % (Auto) 12.8 % 12/07/23 15:15 [place] % (Auto) 7.5 % 12/07/23 15:15 Eos % (Auto) 0.6 % 12/07/23 15:15 Baso % (Auto) 0.2 % 12/07/23 15:15 Neut # (Auto) 15.44 10^3/uL (1.8-7.7) H 12/07/23 15:15 Lymph # (Auto) 2.5 10^3/uL (0.8-4.8) 12/07/23 15:15 [place] # (Auto) 1.5 10^3/uL (0.2-0.9) H 12/07/23 15:15 Eos # (Auto) 0.1 10^3/uL (0.0-0.8) 12/07/23 15:15 Baso # (Auto) 0.0 10^3/uL (0.0-0.1) 12/07/23 15:15 Nucleated RBC % (auto) 0 % 12/07/23 15:15 Nucleated RBCs # 0.0 /100WBC 12/07/23 15:15 TSH 2.69 uIU/mL (0.27-4.20) 12/08/23 01:30 Free T4 0.80 ng/dL (0.82-1.77) L 12/08/23 01:30 Urine Opiates Screen Negative ng/mL (Negative) 12/07/23 16:04 Ur Barbiturates Screen Negative ng/mL (Negative) 12/07/23 16:04 Ur Phencyclidine Scrn Negative ng/mL (Negative) 12/07/23 16:04 Ur Amphetamines Screen Negative ng/mL (Negative) 12/07/23 16:04 U Benzodiazepines Scrn Negative ng/mL (Negative) 12/07/23 16:04 Urine Cocaine Screen Negative ng/mL (Negative) 12/07/23 16:04 U Marijuana (THC) Screen Positive ng/mL (Negative) H 12/07/23 16:04 Blood Type O Positive 12/07/23 15:15 Rho(D) Type Rh positive 12/07/23 15:15 Antibody Screen Negative 12/07/23 15:15 Vitals Last Vital Signs Temp 97.5 F L 12/09/23 09:28 Pulse 76 12/09/23 09:28 Resp 15 12/09/23 09:28 BP 137/83 12/09/23 09:28 Pulse Ox 98 12/09/23 09:28 O2 Del Method Room Air 12/09/23 09:28 Discharge Plan Discharge Patient Disposition: Home Condition: Good Prescriptions: New Vitamin 27 mg iron- 800 mcg Tablet 1 tab PO DAILY Qty: 60 0RF levothyroxine 50 mcg Tablet 50 mcg PO QAM Qty: 30 1RF Continued sertraline 50 mg tablet 75 mg PO DAILY Qty: 45 0RF ibuprofen 800 mg tablet 800 mg PO Q8H PRN (Reason: pain) Qty: 30 0RF Changed buspirone 10 mg tablet 10 mg PO BIDWM Qty: 60 0RF Discharge Orders: Discharge Order (Routine); Ordered 12/09/23 Ordered By: Yousif Alcantar Other Ambulatory Orders: thyroid [id number] (Routine) Timeframe: 2 Weeks Facility: [facility] - Location: [facility]iology [facility] Ordered By: Yousif Alcantar Referrals: Roslyn Madison DO [Primary Care Provider] - 6 Weeks Discharge Diet: Regular Discharge Activity: Resume usual activity Patient Instructions: Depression (DC), Preeclampsia During (DC), Opioid Safety (DC), Hemorrhage (DC), OB Discharge Report, OB Food/Drug Interaction Guide, Opioid Safety, OB [facility] - [facility], Abnormal Bleeding, Depression Activity Restrictions/Additional Instructions: Nothing per vagina for 6 weeks. I recommend showers instead of baths for the first 6 weeks. Start the levothyroxine and follow-up with Dr. Madison for retesting in 6 weeks. I placed an order for a thyroid ultrasound to be done as an outpatient. If you are not hearing anything in the next 2 weeks, please call Dr. Madison's office for further recommendations. Discharge Attestations Time Spent in Discharge Care*: greater than 30 min Status at Discharge: Cognitive status at discharge: cognitively intact , Quality Metrics Clinical Quality Measures [ No reported AMI, CVA or VTE this stay] Coding Level of Care Code Acute Code for Chg Fwd Diagnoses Spontaneous vaginal delivery O80
[2023-12-09 12:00] VITALS: BP 137/83; PULSE 76; RESP 15; TEMP 36.4; O2SAT 98
[2024-01-02] VITALS (27 sets, daily range): BP systolic 116–150; BP diastolic 58–84; PULSE 90–111; TEMP 36.3
== END 2023-12-09 12:15 | disposition home or self-care (01) | DRG 807 ==
LOC: OBGYN 21:40 → OPOB 12-11 09:19
PROVIDERS: Admitting Provider Family Medicine; PCP Family Medicine; Visit Provider Family Medicine
DX: O99.324 Drug use complicating childbirth (principal); Z37.0 Single live birth; F12.90 Cannabis use, unspecified, uncomplicated; O69.81X0 Labor and delivery complicated by cord around neck, without compression, not applicable or unspecified; O99.284 Endocrine, nutritional and metabolic diseases complicating childbirth; Z3A.39 39 weeks gestation of pregnancy; E04.1 Nontoxic single thyroid nodule; E03.9 Hypothyroidism, unspecified; F32.A Depression, unspecified; F41.9 Anxiety disorder, unspecified
CPT/HCPCS: 36415; 51702; 59025; 59409; 80306; 83986; 84439; 84443; 85025; 85027; 86850; 86900; 96374; 96376; 99211; J2405; J2590; J2795; J7120; J7121

== ENCOUNTER 2023-12-29 08:10 | Outpatient (CLI) | payer BC, MEDICAID, SELFPAY ==
--- NOTE | 2023-12-29 08:15 | US_ITS ---
WS: [id number] THYROID ULTRASOUND HISTORY: Thyroid nodule - new diagnosis COMPARISON: None available. Right lobe: 1.8 cm x 1.7 cm x 5.1 cm (w x ap x l). Volume: 7.5 cm3. Normal sized gland. There is a hypoechoic nodule in the mid gland measuring 0.5 x 0.4 x 0.5 cm. No mi crocalcifications. RIGHT isthmus subcentimeter nodule measures 0.5 x 0.4 x 0.5 cm. Left lobe: 2.6 cm x 1.3 cm x 6.1 cm (w x ap x l). Volume: 9.7 cm3. LEFT thyroid is enlarged. There is a large slightly lobulated and very hypervascular mass in the mid to lower LEFT thyroid. This large mass is predominantly solid but contains multiple cystic areas. Mas s measures 5.5 x 2.7 x 3.6 cm. No echogenic foci. Margins are lobulated. Isthmus: 0.5 cm. IMPRESSION: 1. TI-RADS 4; large mass which is very hypervascular in the LEFT thyroid. Consider surgical evaluati on and possible removal. This is a very hypervascular mass. 2. Benign nodules RIGHT thyroid.
== END 2023-12-29 08:11 | disposition home or self-care (01) ==
LOC: RAD 08:10
PROVIDERS: PCP Family Medicine; Visit Provider Family Medicine
DX: E04.1 Nontoxic single thyroid nodule (principal)
CPT/HCPCS: 76536

== ENCOUNTER 2024-02-29 11:30 | Outpatient (CLI) | payer BC, MEDICAID, SELFPAY ==
--- NOTE | 2024-02-29 11:39 | XR_ITS ---
WS: [id number] Exam: XR lumbar spine 6V w f/e [id number] Date/Time of Exam: 02/29/2024 11:46 AM Reason For Exam: VERTEBROGENIC LOW BACK PAIN No fracture or dislocation. Disc spaces are preserved. Slight spondylosis. No flexion or extension in stability. Posterior elements are intact. Facet joints are preserved. XR/XR lumbar spine 6V w f/e [id number] IMPRESSION: 1. Slight spondylosis otherwise normal lumbar spine study.
== END 2024-02-29 11:31 | disposition home or self-care (01) ==
PROVIDERS: PCP Family Medicine; Visit Provider Family Medicine
DX: M54.51 Vertebrogenic low back pain (principal)
CPT/HCPCS: 72114

== ENCOUNTER 2024-06-07 10:22 | Outpatient (CLI) | payer BC, MEDICAID, SELFPAY ==
--- NOTE | 2024-06-07 10:28 | XR_ITS ---
WS: [id number] Right shoulder, 2 views, 06/07/2024 Clinical Data: R SHOULDER JOINT PAIN Comparison: None. Findings: No fractures or dislocations are seen. The AC joint is normal. The adjacent right clavicle, right sca pula and ribs are normal. The soft tissues are unremarkable. XR/XR shoulder RT min 2V* [id number] Impression: Negative right shoulder.
--- NOTE | 2024-06-07 10:28 | XR_ITS ---
WS: [id number] Cervical spine, 5 views including both obliques, 06/07/2024 Clinical Data: NECK PAIN Comparison: None. Findings: No compression fractures are seen. The disc heights are normal. There is no prevertebral so ft tissue swelling. The oblique films show no foraminal encroachment. The odontoid is unremarkable. T he soft tissues of the neck and the lung apices are normal. XR/XR cervical spine 4-5V [id number] Impression: Negative cervical spine and negative oblique images.
== END 2024-06-07 10:23 | disposition home or self-care (01) ==
LOC: RAD 10:24
PROVIDERS: PCP Family Medicine; Visit Provider Family Medicine
DX: M25.511 Pain in right shoulder (principal); M54.2 Cervicalgia
CPT/HCPCS: 72050; 73030

== ENCOUNTER 2024-08-22 14:29 | Outpatient (CLI) | payer BC, MEDICAID, SELFPAY ==
--- NOTE | 2024-08-22 14:34 | US_ITS ---
WS: [id number] THYROID ULTRASOUND HISTORY: MASS OF THYROID GLAND COMPARISON: 12/29/2023 Right lobe: 1.8 cm x 1.5 cm x 5.5 cm (w x ap x l). Volume: 7.0 cm3. Normal sized gland. Subcentimeter hypoechoic nodule in the posterior inferior gland. I do believe thi s is the same nodule that was labeled posterior mid on the prior thyroid ultrasound. Nodule measures 0.5 x 0.3 x 0.6 cm. Left lobe: 6.1 cm x 3.9 cm x 7.8 cm (w x ap x l). Volume: 89.3 cm3. Markedly enlarged heterogeneous LEFT thyroid. There is a very large dominant mass which was previousl y described associated with the LEFT thyroid. This mass has contains cystic and solid components and there is increased vascularity. Vascularity is not quite as pronounced as on the prior study. Mass me asures at least 5.4 x 3.8 x 3.3 cm. This dominant mass may be 2 adjacent masses that are inseparable. Mass was larger on the prior study. The entire mass is difficult to include. As per history prior bi opsy was negative. Isthmus: 0.5 cm. US/US thyroid [id number] IMPRESSION: 1. Large heterogeneous LEFT thyroid mass with increased vascularity. Mass prakash ures at least 5.4 x 3.8 x 3.3 cm. Slightly more cystic component and less vascu larity as compared to the prior study. As per history this has undergone a biop sy. 2. Stable RIGHT thyroid.
== END 2024-08-22 14:30 | disposition home or self-care (01) ==
LOC: RAD 14:31
PROVIDERS: PCP Family Medicine; Visit Provider Family Medicine
DX: E07.9 Disorder of thyroid, unspecified (principal)
CPT/HCPCS: 76536